=== PATIENT | female | born 1990 | race African-American/Black ===

== ENCOUNTER 2024-01-20 17:56 | Inpatient (IN) | payer OTHER ==
[2024-01-20 19:54] VITALS: BMI 25.2
[2024-01-20] MEDS ORDERED: BISMUTH SUBSALICYLATE 524 MG/30 ML PO PRN (20:48)
[2024-01-20] MEDS ORDERED: MAGNESIUM HYDROX 2400MG/30ML ORAL SUSPENSION 30 ML CUP PO PRN (20:48)
[2024-01-20] MEDS ORDERED: NALOXONE HCL 0.4 MG/ML VIAL IM PRN (20:48)
[2024-01-20] MEDS ORDERED: LOPERAMIDE HCL 2 MG CAPSULE PO PRN (20:48)
[2024-01-20] MEDS ORDERED: guaiFENesin 600 MG TABLET.ER (FP) PO PRN (20:48)
[2024-01-20] MEDS ORDERED: ONDANSETRON *ODT* 4 MG TABLET SL PRN (20:48)
[2024-01-20] MEDS ORDERED: BENZOCAINE/MENTHOL (CHLORASEPTIC ) LOZENGE MM PRN (20:48)
[2024-01-20] MEDS ORDERED: DICYCLOMINE HCL 10 MG CAPSULE PO PRN (20:48)
[2024-01-20] MEDS ORDERED: MAG HYDROX/AL HYDROX/SIMETH 30 ML UNIT-DOSE CUP PO PRN (20:48)
[2024-01-20] MEDS ORDERED: NALOXONE (NARCAN) HCL 4 MG/0.1 ML SPRAY NS PRN (20:48)
[2024-01-20] MEDS ORDERED: POLYETHYLENE GLYCOL (HEALTHYLAX) 3350 17 GM PACKET PO PRN (20:48)
[2024-01-20] MEDS ORDERED: BENZONATATE 200 MG CAPSULE PO PRN (20:48)
[2024-01-20] MEDS: MELATONIN 5 MG TABLETS PO SCH (22:56)
[2024-01-20] MEDS: THIAMINE 100 MG TABLET PO SCH (22:56)
[2024-01-20] MEDS: FAMOTIDINE 20 MG TABLET PO SCH (22:56)
[2024-01-20] MEDS: chlordiazePOXIDE HCL 25 MG CAPSULE PO SCH (22:56)
[2024-01-20] MEDS: IBUPROFEN 600 MG TABLET (FP) PO PRN (23:00)
[2024-01-20] MEDS: hydrOXYzine PAMOATE 25 MG CAPSULE (FP) PO PRN (23:01)
[2024-01-21] MEDS: NICOTINE 21 MG/24 HOURS TOPICAL PATCH TD SCH (10:36)
[2024-01-21] MEDS: PRENATAL VITAMINS W/ FOLIC ACID TABLET (FP) PO SCH (10:36)
[2024-01-21 11:48] LABS: HEMATOCRIT 36.3 % (32.4-45.2); HEMOGLOBIN 12.3 GM/dL (10.7-15.3); MCH 28.8 pg (25.7-33.7); MCHC 33.8 g/dl (32.0-36.0); MEAN CELL VOLUME 85.2 fl (80-96); MEAN PLT VOLUME 8.2 fl (7.5-11.1); PLATELET COUNT 220 10^3/uL (134-434); RBC 4.26 M/mm3 (3.60-5.2); RDW 13.6 % (11.6-15.6); WHITE BLOOD COUNT 5.2 K/mm3 (4.0-10.0)
[2024-01-21 11:54] LABS: CHLORIDE 109 mmol/L (98-107); SODIUM 142 mmol/L (136-145)
[2024-01-21 12:06] LABS: ALBUMIN 3.2 g/dl (3.4-5.0); ANION GAP 7 mmol/L (4-13); BLOOD UREA NITROGEN 7.1 mg/dL (7-18); CALCIUM 8.7 mg/dL (8.5-10.1); CO2 26 mmol/L (21-32)
[2024-01-21 12:07] LABS: GLUCOSE,RANDOM 100 mg/dL (74-106)
[2024-01-21 12:09] LABS: CREATININE 0.7 mg/dL (0.55-1.3); SGPT/ALT 20 U/L (13-61)
[2024-01-21 12:10] LABS: SGOT/AST 15 U/L (15-37); TOT PROT 6.4 g/dl (6.4-8.2)
[2024-01-21 12:11] LABS: ALK PHOS 58 U/L (45-117); BILIRUBIN,TOTAL 0.5 mg/dL (0.2-1)
[2024-01-21] MEDS: ACETAMINOPHEN 325 MG TABLET (FP) PO PRN (15:55)
[2024-01-21] MEDS: METHOCARBAMOL 500 MG TABLET PO PRN (22:12)
[2024-01-21] MEDS: traZODone HCL 100 MG TABLET (FP) PO SCH (22:13)
[2024-01-22] MEDS: chlordiazePOXIDE HCL 25 MG CAPSULE PO PRN (02:54)
[2024-01-22] MEDS: chlordiazePOXIDE HCL 25 MG CAPSULE PO SCH (05:38)
[2024-01-22] MEDS: ARIPiprazole 5 MG TABLET PO SCH (10:11)
[2024-01-22] MEDS: NICOTINE POLACRILEX 4 MG GUM BUC PRN (14:30)
[2024-01-22] MEDS: hydrOXYzine PAMOATE 50 MG CAPSULE (FP) PO PRN (17:40)
[2024-01-22] MEDS: IBUPROFEN 400 MG TABLET (FP) PO PRN (17:42)
[2024-01-23] MEDS: chlordiazePOXIDE HCL 10 MG CAPSULE PO SCH (05:37)
[2024-01-23] MEDS: ARIPiprazole 10 MG TABLET PO SCH (10:28)
[2024-01-23] MEDS: chlordiazePOXIDE HCL 10 MG CAPSULE PO PRN (12:23)
[2024-01-24] MEDS: chlordiazePOXIDE HCL 10 MG CAPSULE PO SCH (05:35)
[2024-01-24 11:45] LABS: EOS % 6.9 % (0-4.5); HEMATOCRIT 37.2 % (32.4-45.2); HEMOGLOBIN 12.4 GM/dL (10.7-15.3); LYMPH % 40.5 % (8-40); MCH 28.7 pg (25.7-33.7); MCHC 33.2 g/dl (32.0-36.0); MEAN CELL VOLUME 86.4 fl (80-96); MEAN PLT VOLUME 8.2 fl (7.5-11.1); MONO % 9.8 % (3.8-10.2); NEUT % 41.8 % (42.8-82.8); PLATELET COUNT 209 10^3/uL (134-434); RDW 13.6 % (11.6-15.6)
[2024-01-24 11:50] LABS: CALCIUM 8.6 mg/dL (8.5-10.1); POTASSIUM 3.9 mmol/L (3.5-5.1)
[2024-01-24 11:51] LABS: BLOOD UREA NITROGEN 9.8 mg/dL (7-18)
[2024-01-24 11:54] LABS: CREATININE 0.7 mg/dL (0.55-1.3)
[2024-01-25] MEDS: chlordiazePOXIDE HCL 10 MG CAPSULE PO ONE (05:59)
[2024-01-25 09:16] VITALS: BP 102/59; PULSE 91; RESP 17; TEMP 98.2
== END 2024-01-25 09:30 | disposition other institution (70) | DRG 775 ==
LOC: YASAS 17:56 → Y3N 21:15
PROVIDERS: ADMIT Allergy & Immunology; ATTEND Surgery
PROC: HZ2ZZZZ Detoxification Services for Substance Abuse Treatment (ICD-10-PCS; principal; 2024-01-20)
DX: F10.230 Alcohol dependence with withdrawal, uncomplicated (principal); F12.20 Cannabis dependence, uncomplicated; F17.210 Nicotine dependence, cigarettes, uncomplicated; F19.282 Other psychoactive substance dependence with psychoactive substance-induced sleep disorder; F19.280 Other psychoactive substance dependence with psychoactive substance-induced anxiety disorder; F31.9 Bipolar disorder, unspecified; K29.20 Alcoholic gastritis without bleeding; Z59.01 Sheltered homelessness; Z56.0 Unemployment, unspecified
CPT/HCPCS: 36415; 80048; 80053; 80305; 80307; 81025; 85025; 85027; 86780; 86803; 93005; 93010

== ENCOUNTER 2025-06-02 13:59 | Inpatient (IN) | payer OTHER ==
[2025-06-02 14:32] VITALS: BMI 23.6
[2025-06-02] MEDS ORDERED: ONDANSETRON *ODT* 4 MG TABLET SL PRN (15:04)
[2025-06-02] MEDS ORDERED: IBUPROFEN 400 MG TABLET (FP) PO PRN (15:04)
[2025-06-02] MEDS ORDERED: guaiFENesin 600 MG TABLET.ER (FP) PO PRN (15:04)
[2025-06-02] MEDS ORDERED: LOPERAMIDE HCL 2 MG CAPSULE PO PRN (15:04)
[2025-06-02] MEDS ORDERED: BENZOCAINE/MENTHOL (CHLORASEPTIC ) LOZENGE MM PRN (15:04)
[2025-06-02] MEDS ORDERED: NICOTINE POLACRILEX 2 MG LOZENGE BC PRN (15:04)
[2025-06-02] MEDS ORDERED: MAG HYDROX/AL HYDROX/SIMETH 30 ML UNIT-DOSE CUP PO PRN (15:04)
[2025-06-02] MEDS ORDERED: MAGNESIUM HYDROX 2400MG/30ML ORAL SUSPENSION 30 ML CUP PO PRN (15:04)
[2025-06-02] MEDS ORDERED: POLYETHYLENE GLYCOL (HEALTHYLAX) 3350 17 GM PACKET PO PRN (15:04)
[2025-06-02] MEDS ORDERED: DICYCLOMINE HCL 10 MG CAPSULE PO PRN (15:04)
[2025-06-02] MEDS ORDERED: BENZONATATE 200 MG CAPSULE PO PRN (15:04)
[2025-06-02] MEDS ORDERED: NALOXONE (NARCAN) HCL 4 MG/0.1 ML SPRAY NS PRN (15:04)
[2025-06-02] MEDS ORDERED: NICOTINE POLACRILEX 2 MG GUM BUC PRN (15:04)
[2025-06-02] MEDS ORDERED: BISMUTH SUBSALICYLATE 524 MG/30 ML PO PRN (15:04)
[2025-06-02] MEDS ORDERED: IBUPROFEN 600 MG TABLET (FP) PO PRN (15:04)
[2025-06-02] MEDS ORDERED: METHOCARBAMOL 500 MG TABLET ONE (15:49)
[2025-06-02] MEDS ORDERED: hydrOXYzine PAMOATE 25 MG CAPSULE (FP) PO ONE (15:50)
[2025-06-02] MEDS: METHOCARBAMOL 500 MG TABLET PO PRN (21:25)
[2025-06-02] MEDS: THIAMINE 100 MG TABLET PO SCH (21:25)
[2025-06-02] MEDS: MELATONIN 5 MG TABLETS PO SCH (21:25)
[2025-06-02] MEDS: hydrOXYzine PAMOATE 25 MG CAPSULE (FP) PO PRN (21:25)
[2025-06-03 09:32] LABS: MCHC 32.1 g/dl (32.2-35.5); MEAN CELL VOLUME 89.6 fl (79.4-94.8); MEAN PLT VOLUME 10.9 fl (9.4-12.3); RDW 14.2 % (12.1-16.8)
[2025-06-03 09:35] LABS: GLUCOSE,RANDOM 92 mg/dL (74-106); TOT PROT 6.2 g/dl (6.4-8.2)
[2025-06-03 09:36] LABS: CO2 26 mmol/L (21-32)
[2025-06-03] MEDS: PRENATAL VITAMINS W/ FOLIC ACID TABLET (FP) PO SCH (09:37)
[2025-06-03] MEDS: FOLIC ACID 1 MG TABLET (FP) PO SCH (09:37)
[2025-06-03] MEDS: ACETAMINOPHEN 325 MG TABLET (FP) PO PRN (09:37)
[2025-06-03 09:38] LABS: ALK PHOS 53 U/L (40-150)
[2025-06-03 09:41] LABS: CREATININE 0.73 mg/dL (0.55-1.3); SGOT/AST 21 U/L (5-34); SGPT/ALT 13 U/L (0-55)
[2025-06-03] MEDS: FLU VACC TS2025-26(6MOS UP)/PF 45 MCG/0.5 ML SYRINGE IM ONE (12:02)
[2025-06-03] MEDS: POTASSIUM CHLORIDE ORAL LIQUID 20 MEQ/15 ML PO ONE ×2 (12:02→17:21)
[2025-06-03] MEDS: ESCITALOPRAM OXALATE 20 MG TABLET PO SCH (12:32)
[2025-06-03 14:22] VITALS: RESP 16
[2025-06-03 16:48] VITALS: BP 102/65; PULSE 61; TEMP 98.7
[2025-06-03] MEDS ORDERED: traZODone HCL 100 MG TABLET (FP) PO SCH (22:00)
== END 2025-06-03 18:58 | disposition home or self-care (01) | DRG 775 ==
LOC: YASAS 13:59 → Y3N 15:49
PROVIDERS: ADMIT Neuromusculoskeletal Medicine & OMM; ATTEND Allergy & Immunology
PROC: HZ2ZZZZ Detoxification Services for Substance Abuse Treatment (ICD-10-PCS; principal; 2025-06-02)
DX: F10.20 Alcohol dependence, uncomplicated (principal); F12.20 Cannabis dependence, uncomplicated; F17.210 Nicotine dependence, cigarettes, uncomplicated; F31.9 Bipolar disorder, unspecified; F19.282 Other psychoactive substance dependence with psychoactive substance-induced sleep disorder; F19.280 Other psychoactive substance dependence with psychoactive substance-induced anxiety disorder; F19.24 Other psychoactive substance dependence with psychoactive substance-induced mood disorder; L30.9 Dermatitis, unspecified; Z62.810 Personal history of physical and sexual abuse in childhood; Z91.410 Personal history of adult physical and sexual abuse; Z59.00 Homelessness unspecified
CPT/HCPCS: 36415; 80053; 80307; 85027; 86780; 90656; 93005; 93010